=== PATIENT | female | born 1995 | race Two or more races ===

== ENCOUNTER 2016-07-31 12:25 | Emergency (ER) | payer BC ==
[~2016-07-31 12:25] MED LIST: ALBU17IN INH; ALBU17IN2 INH; ALBU83IN INH; BUDE180INH INH; CELE20TA PO; DELT1TAB PO; IBUP600T26 PO; IPRASOL4 NEB; MONT10TA2 PO; OCEA0.654; PRED50TA PO; implanon ID
[2016-07-31] MEDS ORDERED: ONDANSETRON 4MG/2ML VIAL (J2405) As Ordered ONE (13:13)
[2016-07-31 13:21] LABS: BASO % 0.3 % (0.0-1.0); EOS # 0.1 K/mm3 (0.0-0.50); EOS % 1.1 % (0.0-3.0); LARGE UNSTAINED CELL # 0.1 K/mm3 (0.0-0.4); LARGE UNSTAINED CELL % 0.5 % (0.0-4.0); LYMPH # 0.6 K/mm3 (1.5-6.5); LYMPH % 4.8 % (24.0-44.0); MEAN CORPUSCULAR HEMOGLOBIN 28.8 pg (27.0-33.0); MEAN CORPUSCULAR HGB CONC 33.8 g/dl (32.0-36.5); MEAN CORPUSCULAR VOLUME 85.4 fl (80.0-96.0); MONO # 0.4 K/mm3 (0.0-0.8); MONO % 3.2 % (0.0-5.0); NEUTROPHILS # 10.5 K/mm3 (1.8-7.7); NEUTROPHILS % 90.2 % (36.0-66.0); PLATELET COUNT, AUTOMATED 398 k/mm3 (150-450); RED CELL DISTRIBUTION WIDTH 14.4 % (11.5-14.5); WHITE BLOOD COUNT 11.6 K/mm3 (4.0-10.0)
[2016-07-31 13:37] LABS: ANION GAP 10 MEQ/L (8-16); BLOOD UREA NITROGEN 13 MG/DL (7-18); CALCIUM LEVEL 8.5 MG/DL (8.5-10.1); CARBON DIOXIDE LEVEL 23 MEQ/L (21-32); CHLORIDE LEVEL 104 MEQ/L (98-107); GLOMERULAR FILTRATION RATE > 60.0 (>60); GLUCOSE, FASTING 161 MG/DL (70-105); POTASSIUM SERUM 3.8 MEQ/L (3.5-5.1); SODIUM LEVEL 137 MEQ/L (136-145)
--- NOTE | 2016-07-31 15:31 | EDDOCDS ---
Physician Documentation [facility] Name: Cande Beck Age: 20 yrs Sex: Female : 1995 Arrival Date: 07/31/2016 Time: 12:25 Bed I4 / M4 Private MD: NO PRIMARY PHYSICIAN, . Disposition: 07/31/16 14:46 Discharged to Home/Self Care. Impression: Nausea and vomiting - likely viral gastroenteritis, Diarrhea, unspecified. - Condition is Stable. - Discharge Instructions: Clear Liquid Diet, Viral Gastroenteritis. - Prescriptions for ZOFRAN ODT 4 mg Oral - dissolve 1 tablet by ORAL route every 8 hours As needed do not chew, do not swallow whole; 10 tablet. - Medication Reconciliation, Work Release Form - 2 day, Local Pharmacy Hours form. - [facility]; When: Call to arrange an appointment; Reason: To establish care. Follow up: Emergency Department; When: As needed; Reason: Worsening of conditions. - Problem is new. - Symptoms have improved. Historical: - Allergies: No known drug Allergies; - Home Meds: 1. none - PMHx: Asthma; - PSHx: none; - Social history: Smoking status: Patient states was never smoker of tobacco. No barriers to communication noted, The patient speaks fluent Rwandan, Speaks appropriately for age. - Family history: Not pertinent. - : The pt / caregiver states he / she is not on anticoagulants. Home medication list is obtained from the patient. - Exposure Risk Screening:: None identified. 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 7 in. (170.18 cm) (R); Pain 8/10; 14:51 BP 116 / 64; Pulse 115; Resp 18; Temp 100.0(O); Pulse Ox 95% on R/A; Pain 0/10; nb2 12:27 Body Mass Index 36.02 (104.33 kg, 170.18 cm) gr2 MDM: 12:54 IV Saline Lock ordered. ar2 12:54 Ondansetron 4 mg IVP once ordered. ar2 12:54 NS 0.9% 1000 ml IV at bolus once ordered. ar2 12:55 MED Profile Ordered. EDMS 12:55 CBC with Diff Ordered. EDMS 12:55 -Influenza A&B Rapid Antigen - Nose Ordered. EDMS 13:36 CBC with Diff Reviewed. ar2 13:36 Fluid Challenge ordered. ar2 13:38 Financial registration complete. lg 13:52 [facility] Payment Agreement was scanned into [employer] and attached to record. lg 13:59 MED Profile Reviewed. ar2 13:59 -Influenza A&B Rapid Antigen - Nose Reviewed. ar2 Administered Medications: 13:17 Drug: Ondansetron 4 mg [ondansetron HCl 2 mg/mL intravenous solution (2 mL)] Route: ead IVP; Site: right antecubital; 13:17 Drug: NS 0.9% 1000 ml [sodium chloride 0.9 % intravenous solution] Route: IV; Rate: ead bolus; Site: right antecubital; Signatures: Dispatcher [employer] EDMS Rubén Watson, Reg Reg lg Jennifer ZepedaRN RN ck1 Deandre Ricketts PA-C PAHernesto ar2 Yari Sheppard RN RN ms18 Bre Thornton RN easadi The chart was reviewed and I authenticate all verbal orders and agree with the evaluation and treatment provided.Attachments: 13:52 [facility] Payment Agreement lg MTDD
--- NOTE | 2016-07-31 15:31 | EDDOCDS ---
Nurse's Notes [facility] Name: Cande Beck Age: 20 yrs Sex: Female : 1995 Arrival Date: 07/31/2016 Time: 12:25 Bed I4 / M4 Private MD: NO PRIMARY PHYSICIAN, . Diagnosis: Nausea and vomiting-likely viral gastroenteritis;Diarrhea, unspecified Presentation: 07/31 12:29 Presenting complaint: Patient states: Flu like symtoms since last night. Reports ck1 nausea, vomiting, diarrhea, generalized pain "everywhere". Adult Sepsis Screening: The patient does not have new or worsening altered mentation. Patient's respiratory rate is less than 22. Systolic blood pressure is greater than 100. Patient has a qSOFA score of 0- Negative Sepsis Screen. Suicide/Homicide risk assessment- the patient denies having any suicidal and/or homicidal ideations and does not present with any other emotional, behavioral or mental health complaints. Status: Patient is not a community service representative or dependent. Transition of care: patient was not received from another setting of care. 12:29 Method Of Arrival: Walkin/Carried/Asstd ck1 12:29 Acuity: MARLO Level 3 ck1 Triage Assessment: 12:31 General: Appears in no apparent distress, comfortable, Behavior is appropriate for age, ck1 cooperative. Pain: Location: generalized Pain currently is 9 out of 10 on a pain scale. HIV screening NA for this visit Offered previously. GI: Reports diarrhea, nausea, vomiting. Derm: Skin is pink, warm & dry. 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 none - PMHx: Asthma; - PSHx: none; - Social history: Smoking status: Patient states was never smoker of tobacco. No barriers to communication noted, The patient speaks fluent Nepali, Speaks appropriately for age. - Family history: Not pertinent. - : The pt / caregiver states he / she is not on anticoagulants. Home medication list is obtained from the patient. - Exposure Risk Screening:: None identified. Screenin:23 Screening information is obtained from the patient. Fall risk: No risks identified. ms18 Assistance ADL's: requires no assistance with activities of daily living. Abuse/DV Screen: The patient / caregiver reports he/she is: not in a situation that causes fear, pain or injury. Nutritional screening: No deficits noted. Advance Directives: There is no living will. home support is adequate. Assessment: 13:18 General: Appears in no apparent distress, comfortable, Behavior is appropriate for age, ead cooperative. Pain: Location: body aches Pain currently is 7 out of 10 on a pain scale. Neurological: Level of Consciousness is awake, alert, obeys commands, Oriented to person, place, time. GI: Abdomen is obese, Bowel sounds present X 4 quads. Abd is soft and non tender X 4 quads. Reports nausea, vomiting. Derm: Skin is pink, warm & dry. 14:30 General: Appears in no apparent distress, comfortable, to be sleeping. Respiratory: No ms18 deficits noted. Derm: Skin is pink, warm & dry. 15:23 General: Appears in no apparent distress, comfortable, obese, Behavior is appropriate ms18 for age, cooperative, pleasant. Pain: Location: abdomen Pain currently is 3 out of 10 on a pain scale. Neurological: Level of Consciousness is awake, alert, obeys commands, Oriented to person, place, time, Moves all extremities. Gait is steady, Speech is normal. Respiratory: No deficits noted. Airway is patent Respiratory effort is even, unlabored, Respiratory pattern is regular, symmetrical. Derm: Skin is pink, warm & dry. Vital Signs: 12:27 BP 113 / 73; Pulse 129; Resp 18 S; Temp 97.8(O); Pulse Ox 98% on R/A; Weight 104.33 kg gr2 (R); Height 5 ft. 7 in. (170.18 cm) (R); Pain 8/10; 14:51 BP 116 / 64; Pulse 115; Resp 18; Temp 100.0(O); Pulse Ox 95% on R/A; Pain 0/10; nb2 12:27 Body Mass Index 36.02 (104.33 kg, 170.18 cm) gr2 Vitals: 12:27 Log In Time: July 31, 2016 at 12:27. gr2 ED Course: 12:26 Patient visited by Rosalind Feng. gr2 12:26 NO PRIMARY PHYSICIAN, . is Private Physician. gr2 12:26 Patient moved to Waiting gr2 12:28 Patient visited by Jung, Gainslee. gr2 12:28 Patient moved to Pre RCE gr2 12:31 Triage Initiated ck1 12:32 Patient moved to Triage 2 ck1 12:42 [facility] Ricketts [facility]C [facility] ar2 12:42 Ester Joshi MD is Attending Physician. ar2 12:42 Patient visited by Deandre Ricketts PA-C. ar2 12:55 Patient moved to I4 / M4 ck1 13:10 Patient visited by Bre Thornton RN. ead 13:10 CBC with Diff Sent. ead 13:10 MED Profile Sent. ead 13:10 -Influenza A&B Rapid Antigen - Nose Sent. ead 13:10 Inserted peripheral IV: 20gauge IV in right antecubital area and blood collected. ead Patient tolerated the procedure well. 13:52 [facility] Payment Agreement was scanned into [employer] and attached to record. lg 14:03 Patient visited by Yari Sheppard RN. ms18 14:41 Patient visited by Yari Sheppard RN. ms18 14:45 [facility] is Referral Physician. ar2 14:52 Patient visited by Kiarra Mcgee. nb2 15:14 Patient visited by Kiarra Mcgee. nb2 15:23 Patient visited by Yari Sheppard RN. ms18 15:23 The patient / caregiver is instructed regarding the plan of care and ED course. Patient ms18 has correct armband on for positive identification. Placed in gown. Bed in low position. Call light in reach. Property :Personal belongings accompany Pt. 15:23 Discontinued IV lock intact, bleeding controlled, pressure dressing applied, No ms18 redness/swelling at site. No procedures done that require assistance. Administered Medications: 13:17 Drug: Ondansetron 4 mg [ondansetron HCl 2 mg/mL intravenous solution (2 mL)] Route: ead IVP; Site: right antecubital; 13:17 Drug: NS 0.9% 1000 ml [sodium chloride 0.9 % intravenous solution] Route: IV; Rate: ead bolus; Site: right antecubital; Order Results: Lab Order: -Influenza A&B Rapid Antigen - Nose; SPEC'M 07/31/16 13:08 Test: INFLUENZA A RAPID SCR by ICA; Value: INFLUENZA A RESULTS NEGATIVE; Status: F Test: INFLUENZA A RAPID SCR by ICA; Value: Comments:; Status: F Test: INFLUENZA B RAPID SCR by ICA; Value: INFLUENZA B RESULTS NEGATIVE; Status: F Test Note: ; The Influenza test is a direct rapid immunoassay for the qualitative detection of Influenza viral antigen. Cell culture (Viral Culture) testing should be considered to confirm NEGATIVE results and to assist in detecting other viruses that can provide similar clinical symptoms. Please contact the lab within 24 hours ([phone]) if confirmatory testing is desired. Lab Order: MED Profile; SPEC'M 07/31/16 13:07 Test: GLUCOSE, FASTING; Value: 161; Range: 70-105; Abnormal: Above high normal; Units: MG/DL; Status: F Test: BLOOD UREA NITROGEN; Value: 13; Range: 7-18; Units: MG/DL; Status: F Test: CREATININE FOR GFR; Value: 0.90; Range: 0.55-1.02; Units: MG/DL; Status: F Test: GLOMERULAR FILTRATION RATE; Value: > 60.0; Range: >60; Status: F Test: SODIUM LEVEL; Value: 137; Range: 136-145; Units: MEQ/L; Status: F Test: POTASSIUM SERUM; Value: 3.8; Range: 3.5-5.1; Units: MEQ/L; Status: F Test: CHLORIDE LEVEL; Value: 104; Range: 98-107; Units: MEQ/L; Status: F Test: CARBON DIOXIDE LEVEL; Value: 23; Range: 21-32; Units: MEQ/L; Status: F Test: ANION GAP; Value: 10; Range: 8-16; Units: MEQ/L; Status: F Test: CALCIUM LEVEL; Value: 8.5; Range: 8.5-10.1; Units: MG/DL; Status: F Test Note: ; Units are mL/min/1.73 m2 Chronic Kidney Disease Staging per NKF: Stage I & II GFR >=60 Normal to Mildly Decreased Stage III GFR 30-59 Moderately Decreased Stage IV GFR 15-29 Severely Decreased Stage V GFR <15 Very Little GFR Left ESRD GFR <15 on 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 Lab Order: CBC with Diff; SPEC'M 07/31/16 13:08 Test: WHITE BLOOD COUNT; Value: 11.6; Range: 4.0-10.0; Abnormal: Above high normal; Units: K/mm3; Status: F Test: RED BLOOD COUNT; Value: 5.11; Range: 4.00-5.40; Units: M/mm3; Status: F Test: HEMOGLOBIN; Value: 14.7; Range: 12.0-16.0; Units: g/dl; Status: F Test: HEMATOCRIT; Value: 43.7; Range: 36.0-47.0; Units: %; Status: F Test: MEAN CORPUSCULAR VOLUME; Value: 85.4; Range: 80.0-96.0; Units: fl; Status: F Test: MEAN CORPUSCULAR HEMOGLOBIN; Value: 28.8; Range: 27.0-33.0; Units: pg; Status: F Test: MEAN CORPUSCULAR HGB CONC; Value: 33.8; Range: 32.0-36.5; Units: g/dl; Status: F Test: RED CELL DISTRIBUTION WIDTH; Value: 14.4; Range: 11.5-14.5; Units: %; Status: F Test: PLATELET COUNT, AUTOMATED; Value: 398; Range: 150-450; Units: k/mm3; Status: F Test: NEUTROPHILS %; Value: 90.2; Range: 36.0-66.0; Abnormal: Above high normal; Units: %; Status: F Test: LYMPH %; Value: 4.8; Range: 24.0-44.0; Abnormal: Below low normal; Units: %; Status: F Test: MONO %; Value: 3.2; Range: 0.0-5.0; Units: %; Status: F Test: EOS %; Value: 1.1; Range: 0.0-3.0; Units: %; Status: F Test: BASO %; Value: 0.3; Range: 0.0-1.0; Units: %; Status: F Test: LARGE UNSTAINED CELL %; Value: 0.5; Range: 0.0-4.0; Units: %; Status: F Test: NEUTROPHILS #; Value: 10.5; Range: 1.8-7.7; Abnormal: Above high normal; Units: K/mm3; Status: F Test: LYMPH #; Value: 0.6; Range: 1.5-6.5; Abnormal: Below low normal; Units: K/mm3; Status: F Test: MONO #; Value: 0.4; Range: 0.0-0.8; Units: K/mm3; Status: F Test: EOS #; Value: 0.1; Range: 0.0-0.50; Units: K/mm3; Status: F Test: BASO #; Value: 0.0; Range: 0.0-0.2; Units: K/mm3; Status: F Test: LARGE UNSTAINED CELL #; Value: 0.1; Range: 0.0-0.4; Units: K/mm3; Status: F Outcome: 14:46 Discharge ordered by Provider. ar2 15:23 Discharge Assessment: Patient awake, alert and oriented x 3. No cognitive and/or ms18 functional deficits noted. Patient verbalized understanding of disposition instructions. patient administered narcotics - no. The following High Risk Discharge criteria are identified: None. Discharged to home ambulatory. Condition: good Condition: stable Condition: improved. No special radiology studies were completed. Property :Personal belongings accompany Pt. 15:30 Patient left the ED. ms18 Signatures: Rubén Watson, Reg Reg lg Jennifer ZepedaRN RN ck1 Deandre Ricketts PA-C PA-C ar2 Rosalind Feng gr2 Bre Thornton,Yari Mejia RN, RN RN ms18 Kiarra Mcgee2 MTDCarolyne
[2016-08-01] MEDS ORDERED: METAL LOCK LOOP XX ONE (02:19)
--- NOTE | 2016-08-02 16:31 | EDDOCDS ---
Nurse's Notes [facility] Name: Cande Beck Age: 20 yrs Sex: Female : 1995 Arrival Date: 07/31/2016 Time: 12:25 Bed I4 / M4 Private MD: NO PRIMARY PHYSICIAN, . Diagnosis: Nausea and vomiting-likely viral gastroenteritis;Diarrhea, unspecified Presentation: 07/31 12:29 Presenting complaint: Patient states: Flu like symtoms since last night. Reports ck1 nausea, vomiting, diarrhea, generalized pain "everywhere". Adult Sepsis Screening: The patient does not have new or worsening altered mentation. Patient's respiratory rate is less than 22. Systolic blood pressure is greater than 100. Patient has a qSOFA score of 0- Negative Sepsis Screen. Suicide/Homicide risk assessment- the patient denies having any suicidal and/or homicidal ideations and does not present with any other emotional, behavioral or mental health complaints. 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 Transition of care: patient was not received from another setting of care. 12:29 Method Of Arrival: Walkin/Carried/Asstd ck1 12:29 Acuity: MARLO Level 3 ck1 Triage Assessment: 12:31 General: Appears in no apparent distress, comfortable, Behavior is appropriate for age, ck1 cooperative. Pain: Location: generalized Pain currently is 9 out of 10 on a pain scale. HIV screening NA for this visit Offered previously. GI: Reports diarrhea, nausea, vomiting. Derm: Skin is pink, warm & dry. 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 none - PMHx: Asthma; - PSHx: none; - Social history: Smoking status: Patient states was never smoker of tobacco. No barriers to communication noted, The patient speaks fluent Lao, Speaks appropriately for age. - Family history: Not pertinent. - : The pt / caregiver states he / she is not on anticoagulants. Home medication list is obtained from the patient. - Exposure Risk Screening:: None identified. Screenin:23 Screening information is obtained from the patient. Fall risk: No risks identified. ms18 Assistance ADL's: requires no assistance with activities of daily living. Abuse/DV Screen: The patient / caregiver reports he/she is: not in a situation that causes fear, pain or injury. Nutritional screening: No deficits noted. Advance Directives: There is no living will. home support is adequate. Assessment: 13:18 General: Appears in no apparent distress, comfortable, Behavior is appropriate for age, ead cooperative. Pain: Location: body aches Pain currently is 7 out of 10 on a pain scale. Neurological: Level of Consciousness is awake, alert, obeys commands, Oriented to person, place, time. GI: Abdomen is obese, Bowel sounds present X 4 quads. Abd is soft and non tender X 4 quads. Reports nausea, vomiting. Derm: Skin is pink, warm & dry. 14:30 General: Appears in no apparent distress, comfortable, to be sleeping. Respiratory: No ms18 deficits noted. Derm: Skin is pink, warm & dry. 15:23 General: Appears in no apparent distress, comfortable, obese, Behavior is appropriate ms18 for age, cooperative, pleasant. Pain: Location: abdomen Pain currently is 3 out of 10 on a pain scale. Neurological: Level of Consciousness is awake, alert, obeys commands, Oriented to person, place, time, Moves all extremities. Gait is steady, Speech is normal. Respiratory: No deficits noted. Airway is patent Respiratory effort is even, unlabored, Respiratory pattern is regular, symmetrical. Derm: Skin is pink, warm & dry. Vital Signs: 12:27 BP 113 / 73; Pulse 129; Resp 18 S; Temp 97.8(O); Pulse Ox 98% on R/A; Weight 104.33 kg gr2 (R); Height 5 ft. 7 in. (170.18 cm) (R); Pain 8/10; 14:51 BP 116 / 64; Pulse 115; Resp 18; Temp 100.0(O); Pulse Ox 95% on R/A; Pain 0/10; nb2 12:27 Body Mass Index 36.02 (104.33 kg, 170.18 cm) gr2 Vitals: 12:27 Log In Time: July 31, 2016 at 12:27. gr2 ED Course: 12:26 Patient visited by Rosalind Feng. gr2 12:26 NO PRIMARY PHYSICIAN, . is Private Physician. gr2 12:26 Patient moved to Waiting gr2 12:28 Patient visited by Jung, Gainslee. gr2 12:28 Patient moved to Pre RCE gr2 12:31 Triage Initiated ck1 12:32 Patient moved to Triage 2 ck1 12:42 [facility]etts [facility] ar2 12:42 Ester Joshi MD is Attending Physician. ar2 12:42 Patient visited by Deandre Ricketts PA-C. ar2 12:55 Patient moved to I4 / M4 ck1 13:10 Patient visited by Bre Thornton RN. ead 13:10 CBC with Diff Sent. ead 13:10 MED Profile Sent. ead 13:10 -Influenza A&B Rapid Antigen - Nose Sent. ead 13:10 Inserted peripheral IV: 20gauge IV in right antecubital area and blood collected. ead Patient tolerated the procedure well. 13:52 [facility] Payment Agreement was scanned into [employer] and attached to record. lg 14:03 Patient visited by Yari Sheppard RN. ms18 14:41 Patient visited by Yari Sheppard RN. ms18 14:45 [facility] is Referral Physician. ar2 14:52 Patient visited by Kiarra Mcgee. nb2 15:14 Patient visited by Kiarra Mcgee. nb2 15:23 Patient visited by Yari Sheppard RN. ms18 15:23 The patient / caregiver is instructed regarding the plan of care and ED course. Patient ms18 has correct armband on for positive identification. Placed in gown. Bed in low position. Call light in reach. Property :Personal belongings accompany Pt. 15:23 Discontinued IV lock intact, bleeding controlled, pressure dressing applied, No ms18 redness/swelling at site. No procedures done that require assistance. 08/01 19:55 T-Sheet-- Draft Copy was scanned into [employer] and attached to record. klr Administered Medications: 07/31 13:17 Drug: Ondansetron 4 mg [ondansetron HCl 2 mg/mL intravenous solution (2 mL)] Route: ead IVP; Site: right antecubital; 13:17 Drug: NS 0.9% 1000 ml [sodium chloride 0.9 % intravenous solution] Route: IV; Rate: ead bolus; Site: right antecubital; Order Results: Lab Order: -Influenza A&B Rapid Antigen - Nose; SPEC'M 07/31/16 13:08 Test: INFLUENZA A RAPID SCR by ICA; Value: INFLUENZA A RESULTS NEGATIVE; Status: F Test: INFLUENZA A RAPID SCR by ICA; Value: Comments:; Status: F Test: INFLUENZA B RAPID SCR by ICA; Value: INFLUENZA B RESULTS NEGATIVE; Status: F Test Note: ; The Influenza test is a direct rapid immunoassay for the qualitative detection of Influenza viral antigen. Cell culture (Viral Culture) testing should be considered to confirm NEGATIVE results and to assist in detecting other viruses that can provide similar clinical symptoms. Please contact the lab within 24 hours ([phone]) if confirmatory testing is desired. Lab Order: MED Profile; SPEC'M 07/31/16 13:07 Test: GLUCOSE, FASTING; Value: 161; Range: 70-105; Abnormal: Above high normal; Units: MG/DL; Status: F Test: BLOOD UREA NITROGEN; Value: 13; Range: 7-18; Units: MG/DL; Status: F Test: CREATININE FOR GFR; Value: 0.90; Range: 0.55-1.02; Units: MG/DL; Status: F Test: GLOMERULAR FILTRATION RATE; Value: > 60.0; Range: >60; Status: F Test: SODIUM LEVEL; Value: 137; Range: 136-145; Units: MEQ/L; Status: F Test: POTASSIUM SERUM; Value: 3.8; Range: 3.5-5.1; Units: MEQ/L; Status: F Test: CHLORIDE LEVEL; Value: 104; Range: 98-107; Units: MEQ/L; Status: F Test: CARBON DIOXIDE LEVEL; Value: 23; Range: 21-32; Units: MEQ/L; Status: F Test: ANION GAP; Value: 10; Range: 8-16; Units: MEQ/L; Status: F Test: CALCIUM LEVEL; Value: 8.5; Range: 8.5-10.1; Units: MG/DL; Status: F Test Note: ; Units are mL/min/1.73 m2 Chronic Kidney Disease Staging per NKF: Stage I & II GFR >=60 Normal to Mildly Decreased Stage III GFR 30-59 Moderately Decreased Stage IV GFR 15-29 Severely Decreased Stage V GFR <15 Very Little GFR Left ESRD GFR <15 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 Lab Order: CBC with Diff; SPEC'M 07/31/16 13:08 Test: WHITE BLOOD COUNT; Value: 11.6; Range: 4.0-10.0; Abnormal: Above high normal; Units: K/mm3; Status: F Test: RED BLOOD COUNT; Value: 5.11; Range: 4.00-5.40; Units: M/mm3; Status: F Test: HEMOGLOBIN; Value: 14.7; Range: 12.0-16.0; Units: g/dl; Status: F Test: HEMATOCRIT; Value: 43.7; Range: 36.0-47.0; Units: %; Status: F Test: MEAN CORPUSCULAR VOLUME; Value: 85.4; Range: 80.0-96.0; Units: fl; Status: F Test: MEAN CORPUSCULAR HEMOGLOBIN; Value: 28.8; Range: 27.0-33.0; Units: pg; Status: F Test: MEAN CORPUSCULAR HGB CONC; Value: 33.8; Range: 32.0-36.5; Units: g/dl; Status: F Test: RED CELL DISTRIBUTION WIDTH; Value: 14.4; Range: 11.5-14.5; Units: %; Status: F Test: PLATELET COUNT, AUTOMATED; Value: 398; Range: 150-450; Units: k/mm3; Status: F Test: NEUTROPHILS %; Value: 90.2; Range: 36.0-66.0; Abnormal: Above high normal; Units: %; Status: F Test: LYMPH %; Value: 4.8; Range: 24.0-44.0; Abnormal: Below low normal; Units: %; Status: F Test: MONO %; Value: 3.2; Range: 0.0-5.0; Units: %; Status: F Test: EOS %; Value: 1.1; Range: 0.0-3.0; Units: %; Status: F Test: BASO %; Value: 0.3; Range: 0.0-1.0; Units: %; Status: F Test: LARGE UNSTAINED CELL %; Value: 0.5; Range: 0.0-4.0; Units: %; Status: F Test: NEUTROPHILS #; Value: 10.5; Range: 1.8-7.7; Abnormal: Above high normal; Units: K/mm3; Status: F Test: LYMPH #; Value: 0.6; Range: 1.5-6.5; Abnormal: Below low normal; Units: K/mm3; Status: F Test: MONO #; Value: 0.4; Range: 0.0-0.8; Units: K/mm3; Status: F Test: EOS #; Value: 0.1; Range: 0.0-0.50; Units: K/mm3; Status: F Test: BASO #; Value: 0.0; Range: 0.0-0.2; Units: K/mm3; Status: F Test: LARGE UNSTAINED CELL #; Value: 0.1; Range: 0.0-0.4; Units: K/mm3; Status: F Outcome: 14:46 Discharge ordered by Provider. ar2 15:23 Discharge Assessment: Patient awake, alert and oriented x 3. No cognitive and/or ms18 functional deficits noted. Patient verbalized understanding of disposition instructions. patient administered narcotics - no. The following High Risk Discharge criteria are identified: None. Discharged to home ambulatory. Condition: good Condition: stable Condition: improved. No special radiology studies were completed. Property :Personal belongings accompany Pt. 15:30 Patient left the ED. ms18 Signatures: Rubén Watson, Reg Reg lg Jennifer ZepedaRN RN ck1 Deandre Ricketts PA-C PA-C ar2 Rosalind Feng gr2 Bre Thornton RN RN ead Smith, Mallory, RN RN ms18 Reena Hairston Nicole nb2 Chart Complete MTDD
--- NOTE | 2016-08-02 16:31 | EDDOCDS ---
Physician Documentation [facility] Name: Cande Beck Age: 20 yrs Sex: Female : 1995 Arrival Date: 07/31/2016 Time: 12:25 Bed I4 / M4 Private MD: NO PRIMARY PHYSICIAN, . Disposition: 07/31/16 14:46 Discharged to Home/Self Care. Impression: Nausea and vomiting - likely viral gastroenteritis, Diarrhea, unspecified. - Condition is Stable. - Discharge Instructions: Clear Liquid Diet, Viral Gastroenteritis. - Prescriptions for ZOFRAN ODT 4 mg Oral - dissolve 1 tablet by ORAL route every 8 hours As needed do not chew, do not swallow whole; 10 tablet. - Medication Reconciliation, Work Release Form - 2 day, Local Pharmacy Hours form. - [facility]; When: Call to arrange an appointment; Reason: To establish care. Follow up: Emergency Department; When: As needed; Reason: Worsening of conditions. - Problem is new. - Symptoms have improved. Historical: - Allergies: No known drug Allergies; - Home Meds: 1. none - PMHx: Asthma; - PSHx: none; - Social history: Smoking status: Patient states was never smoker of tobacco. No barriers to communication noted, The patient speaks fluent [place], Speaks appropriately for age. - Family history: Not pertinent. - : The pt / caregiver states he / she is not on anticoagulants. Home medication list is obtained from the patient. - Exposure Risk Screening:: None identified. 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 7 in. (170.18 cm) (R); Pain 8/10; 14:51 BP 116 / 64; Pulse 115; Resp 18; Temp 100.0(O); Pulse Ox 95% on R/A; Pain 0/10; nb2 12:27 Body Mass Index 36.02 (104.33 kg, 170.18 cm) gr2 MDM: 12:54 IV Saline Lock ordered. ar2 12:54 Ondansetron 4 mg IVP once ordered. ar2 12:54 NS 0.9% 1000 ml IV at bolus once ordered. ar2 12:55 MED Profile Ordered. EDMS 12:55 CBC with Diff Ordered. EDMS 12:55 -Influenza A&B Rapid Antigen - Nose Ordered. EDMS 13:36 CBC with Diff Reviewed. ar2 13:36 Fluid Challenge ordered. ar2 13:38 Financial registration complete. lg 13:52 [facility] Payment Agreement was scanned into [employer] and attached to record. lg 13:59 MED Profile Reviewed. ar2 13:59 -Influenza A&B Rapid Antigen - Nose Reviewed. ar2 08/01 19:55 T-Sheet-- Draft Copy was scanned into [employer] and attached to record. klr Administered Medications: 07/31 13:17 Drug: Ondansetron 4 mg [ondansetron HCl 2 mg/mL intravenous solution (2 mL)] Route: ead IVP; Site: right antecubital; 13:17 Drug: NS 0.9% 1000 ml [sodium chloride 0.9 % intravenous solution] Route: IV; Rate: ead bolus; Site: right antecubital; Signatures: Dispatcher [employer] EDMS Rubén Watson, Reg Reg lg Jennifer Zepeda RN RN ck1 Deandre Ricketts PA-C PAKaciC ar2 Yari Sheppard RN RN [id number] Reena Hairston Emily RN ead The chart was reviewed and I authenticate all verbal orders and agree with the evaluation and treatment provided.Attachments: 13:52 [facility] Payment Agreement 08/01 19:55 T-Sheet-- Draft Copy klr Chart Complete MTDD
--- NOTE | 2016-08-02 16:31 | EDDOCDS ---
Physician Documentation [facility] Name: Cande Beck Age: 20 yrs Sex: Female : 1995 Arrival Date: 07/31/2016 Time: 12:25 Bed I4 / M4 Private MD: NO PRIMARY PHYSICIAN, . Disposition: 07/31/16 14:46 Discharged to Home/Self Care. Impression: Nausea and vomiting - likely viral gastroenteritis, Diarrhea, unspecified. - Condition is Stable. - Discharge Instructions: Clear Liquid Diet, Viral Gastroenteritis. - Prescriptions for ZOFRAN ODT 4 mg Oral - dissolve 1 tablet by ORAL route every 8 hours As needed do not chew, do not swallow whole; 10 tablet. - Medication Reconciliation, Work Release Form - 2 day, Local Pharmacy Hours form. - Follow up: [facility]; When: Call to arrange an appointment; Reason: To establish care. Follow up: Emergency Department; When: As needed; Reason: Worsening of conditions. - Problem is new. - Symptoms have improved. Historical: - Allergies: No known drug Allergies; - Home Meds: 1. none - PMHx: Asthma; - PSHx: none; - Social history: Smoking status: Patient states was never smoker of tobacco. No barriers to communication noted, The patient speaks fluent Dominican, Speaks appropriately for age. - Family history: Not pertinent. - : The pt / caregiver states he / she is not on anticoagulants. Home medication list is obtained from the patient. - Exposure Risk Screening:: None identified. 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 7 in. (170.18 cm) (R); Pain 8/10; 14:51 BP 116 / 64; Pulse 115; Resp 18; Temp 100.0(O); Pulse Ox 95% on R/A; Pain 0/10; nb2 12:27 Body Mass Index 36.02 (104.33 kg, 170.18 cm) gr2 MDM: 12:54 IV Saline Lock ordered. ar2 12:54 Ondansetron 4 mg IVP once ordered. ar2 12:54 NS 0.9% 1000 ml IV at bolus once ordered. ar2 12:55 MED Profile Ordered. EDMS 12:55 CBC with Diff Ordered. EDMS 12:55 -Influenza A&B Rapid Antigen - Nose Ordered. EDMS 13:36 CBC with Diff Reviewed. ar2 13:36 Fluid Challenge ordered. ar2 13:38 Financial registration complete. lg 13:52 [facility] Payment Agreement was scanned into [employer] and attached to record. lg 13:59 MED Profile Reviewed. ar2 13:59 -Influenza A&B Rapid Antigen - Nose Reviewed. ar2 08/01 19:55 T-Sheet-- Draft Copy was scanned into [employer] and attached to record. klr Administered Medications: 07/31 13:17 Drug: Ondansetron 4 mg [ondansetron HCl 2 mg/mL intravenous solution (2 mL)] Route: ead IVP; Site: right antecubital; 13:17 Drug: NS 0.9% 1000 ml [sodium chloride 0.9 % intravenous solution] Route: IV; Rate: ead bolus; Site: right antecubital; Signatures: Dispatcher [employer] EDMS Rubén Watson, Reg Reg lg Jennifer Zepeda RN RN ck1 Deandre Ricketts PA-C PAKaciC ar2 Yari Sheppard RN RN [id number] Reena Hairston Emily RN ead The chart was reviewed and I authenticate all verbal orders and agree with the evaluation and treatment provided.Attachments: 13:52 [facility] Payment Agreement 08/01 19:55 T-Sheet-- Draft Copy klr Chart Complete MTDD
== END 2016-07-31 15:30 | disposition home or self-care (01) ==
LOC: M ED 12:25
DX: A08.4 Viral intestinal infection, unspecified (principal); J45.909 Unspecified asthma, uncomplicated
CPT/HCPCS: 36415; 80048; 85025; 87804; 96374; 99284; J2405

== ENCOUNTER 2016-09-20 09:23 | Emergency (ER) | payer BC ==
[~2016-09-20] VITALS: Ht 170.2 cm; Wt 108.9 kg
[2016-09-20 09:24] VITALS: BP 119/78
[2016-09-20] MEDS ORDERED: IBUP600T26 PO (09:54)
[2016-09-20] MEDS ORDERED: AMOX500C PO (10:15)
== END 2016-09-20 10:47 | disposition home or self-care (01) ==
LOC: M ED 10:31
DX: J03.91 Acute recurrent tonsillitis, unspecified (principal); F17.210 Nicotine dependence, cigarettes, uncomplicated

== ENCOUNTER → 2017-01-20 | Outpatient (CLI) | payer BC ==
[~2017-01-20] MED LIST changes: +ABIL1TAB13 PO; +AMOX500C PO; +FLAG500T PO; +IBUP-1022 PO; -IBUP600T26 PO; +LEVO50TA5 PO; +NAPR500T PO
[2017-01-20 09:58] LABS: BASO # 0.1 K/mm3 (0.0-0.2); BASO % 0.9 % (0.0-1.0); EOS # 0.7 K/mm3 (0.0-0.50); EOS % 7.2 % (0.0-3.0); LARGE UNSTAINED CELL # 0.2 K/mm3 (0.0-0.4); LARGE UNSTAINED CELL % 1.5 % (0.0-4.0); LYMPH # 2.8 K/mm3 (1.5-6.5); LYMPH % 27.1 % (24.0-44.0); MEAN CORPUSCULAR HGB CONC 32.6 g/dl (32.0-36.5); MEAN CORPUSCULAR VOLUME 82.7 fl (80.0-96.0); MONO # 0.4 K/mm3 (0.0-0.8); MONO % 3.9 % (0.0-5.0); NEUTROPHILS # 5.8 K/mm3 (1.8-7.7); NEUTROPHILS % 59.4 % (36.0-66.0); PLATELET COUNT, AUTOMATED 408 k/mm3 (150-450); RED CELL DISTRIBUTION WIDTH 15.7 % (11.5-14.5); WHITE BLOOD COUNT 9.7 K/mm3 (4.0-10.0)
[2017-01-20 10:29] LABS: ALBUMIN/GLOBULIN RATIO 1.11 (1.00-1.93); ALKALINE PHOSPHATASE 88 U/L (45-117); ALT/SGPT 29 U/L (12-78); ANION GAP 9 MEQ/L (8-16); AST/SGOT 19 U/L (15-37); BILIRUBIN,TOTAL 1.2 MG/DL (0.2-1.0); BLOOD UREA NITROGEN 7 MG/DL (7-18); CALCIUM LEVEL 8.9 MG/DL (8.5-10.1); CARBON DIOXIDE LEVEL 27 MEQ/L (21-32); CHLORIDE LEVEL 106 MEQ/L (98-107); CHOLESTEROL LEVEL 198 MG/DL (<200); CREATININE FOR GFR 0.62 MG/DL (0.55-1.02); FREE T4 0.89 NG/DL (0.76-1.46); GLOMERULAR FILTRATION RATE > 60.0 (>60); GLUCOSE, FASTING 75 MG/DL (70-105); POTASSIUM SERUM 4.2 MEQ/L (3.5-5.1); SODIUM LEVEL 142 MEQ/L (136-145); TOTAL PROTEIN 7.6 GM/DL (6.4-8.2); TRIGLYCERIDES LEVEL 90 MG/DL (<150)
== END ==
LOC: M LAB 08:43
PROVIDERS: ATTEND Nurse Practitioner Family
DX: Z00.00 Encounter for general adult medical examination without abnormal findings (principal); E66.9 Obesity, unspecified; E01.0 Iodine-deficiency related diffuse (endemic) goiter; R94.6 Abnormal results of thyroid function studies

== ENCOUNTER 2017-02-04 09:11 | Day surgery (SDC) | payer BC ==
[~2017-02-04] VITALS: Ht 172.7 cm; Wt 107.5 kg
[~2017-02-04 09:11] MED LIST changes: -ABIL1TAB13 PO; -FLAG500T PO; +LR 1,000 ML IV ONE; -NAPR500T PO
[2017-02-04 11:08] LABS: CONTROL LINE UCG INT CTR LINE PRESENT
[2017-02-04] MEDS ORDERED: BUPIVACAINE HCL 0.5% 30 ML VIAL As Ordered ONE (12:28)
[2017-02-04] MEDS ORDERED: dexameTHASONE 4 MG/ML 1ML VIAL (J1100) As Ordered ONE (12:32)
[2017-02-04] MEDS ORDERED: LIDOCAINE 2% INJ 100 MG/5 ML SDV (FOR ANES.) As Ordered ONE (12:32)
[2017-02-04] MEDS ORDERED: PROPOFOL 200 MG/20 ML VIAL As Ordered ONE ×3 (12:32→15:11)
[2017-02-04] MEDS ORDERED: ROCURONIUM BROMIDE 50 MG/5 ML VIAL/SYRINGE As Ordered ONE (12:32)
[2017-02-04] MEDS ORDERED: MIDAZOLAM INJ 2 MG/2 ML VIAL (J2250) As Ordered ONE (12:33)
[2017-02-04] MEDS ORDERED: fentaNYL 100 MCG/2 ML INJECTION (J3010) As Ordered ONE (12:33)
[2017-02-04] MEDS ORDERED: HYDROmorphone HCL 2 MG/ML 1ML VIAL (J1170) As Ordered ONE (13:12)
[2017-02-04] MEDS ORDERED: HYDROcodone/APAP LIQUID 7.5-325MG 15ML UDC (LORTAB ELIXIR) PO PRN (14:15)
[2017-02-04] MEDS ORDERED: fentaNYL 100 MCG/2 ML INJECTION (J3010) IV PRN (14:15)
[2017-02-04] MEDS ORDERED: LR 1,000 ML IV SCH (14:15)
[2017-02-04] MEDS ORDERED: PERCOCET 5MG/325MG TAB PO PRN ×2 (14:15)
[2017-02-04] MEDS ORDERED: ONDANSETRON 4MG/2ML VIAL (J2405) IV PRN (14:15)
[2017-02-04] MEDS ORDERED: IBUPROFEN 800 MG TAB PO PRN (14:15)
[2017-02-04] MEDS ORDERED: IBUPROFEN 100 MG/5 ML SUSP UDC DYE FREE As Ordered ONE (14:50)
[2017-02-04 16:45] VITALS: BP 131/83
--- NOTE | 2017-02-18 19:15 | RO ---
DATE OF PROCEDURE: 02/04/2017 PREOPERATIVE DIAGNOSIS: Chronic tonsillitis. POSTOPERATIVE DIAGNOSIS: Chronic tonsillitis. PROCEDURE: Tonsillectomy. SURGEON: Nik Beltre MD WORKERS' COMPENSATION MEDIATOR: ANESTHESIA: INDICATION: This is a 21-year-old who presents with a long history of recurrent pharyngitis and tonsillitis. DESCRIPTION OF PROCEDURE: Satisfactory general endotracheal anesthesia was administered. The patient placed in Trendelenburg position. A Paul-Oneal gag inserted. First, the right tonsil was grasped with an Allis clamp and retracted out of its muscular fossa. Using cutting cautery, incision was made on the anterior pillar 3 mm from its edge and the capsule of the tonsil was then identified. Using a combination of cautery and blunt dissection, the tonsil was dissected medially out of its muscular fossa, working superiorly down into the space between the constrictor muscle and the tonsil capsule. The tonsil was rolled medially out of its fossa, working inferiorly and preserving the posterior pillar in its entirety. Once the tonsil was suspended only at the inferior pole, coagulation current was used to amputate tissue. No significant bleeding was encountered in this dissection. The left tonsil was removed in a similar fashion. After the surgery was done, the gag was released for 3 minutes. Reinspection showed no active bleeding. 0.5% Marcaine was injected into the tonsil fossae. She was then awakened, extubated, and sent to recovery in satisfactory condition. The patient will be discharged home with selection of pain medicines including Percocet, Hycet elixir and Motrin to be alternated. She will be seen back in the office in one week.
== END 2017-02-04 12:28 | disposition home or self-care (01) ==
LOC: M SDC 09:11
PROVIDERS: ATTEND Specialist
DX: J35.01 Chronic tonsillitis (principal); J45.909 Unspecified asthma, uncomplicated; E03.9 Hypothyroidism, unspecified
CPT/HCPCS: 42826; 84703; 88302; J1100; J1170; J2250; J3010

== ENCOUNTER 2017-03-06 23:07 | Emergency (ER) | payer BC ==
[~2017-03-06] VITALS: Ht 172.7 cm; Wt 104.5 kg
[~2017-03-06 23:07] MED LIST changes: -LR 1,000 ML IV ONE
[2017-03-06] MEDS ORDERED: FLAG500T PO (23:17)
[2017-03-07] MEDS ORDERED: NAPROXEN 250 MG TAB PO ONE (01:00)
[2017-03-07] MEDS ORDERED: ONDANSETRON 4 MG ORAL DISINTEGRATING TAB (S0181) PO ONE (01:00)
[2017-03-07] MEDS ORDERED: NAPR500T PO (01:57)
[2017-03-07 02:04] VITALS: BP 122/68
== END 2017-03-07 02:06 | disposition home or self-care (01) ==
LOC: M ED 23:07
DX: R53.83 Other fatigue (principal); J45.909 Unspecified asthma, uncomplicated; G89.29 Other chronic pain; R51 Headache; Z79.899 Other long term (current) drug therapy

== ENCOUNTER 2017-03-30 00:20 | Emergency (ER) | payer BC ==
[~2017-03-30] VITALS: Ht 172.7 cm; Wt 104.5 kg
[~2017-03-30 00:20] MED LIST changes: +FLAG500T PO; +NAPR500T PO
[2017-03-30 00:35] VITALS: BP 124/74
[2017-03-30] MEDS ORDERED: ABIL1TAB13 PO (00:41)
== END 2017-03-30 01:25 | disposition left against medical advice (07) ==
LOC: M ED 00:20
DX: Z53.21 Procedure and treatment not carried out due to patient leaving prior to being seen by health care provider (principal)

== ENCOUNTER 2017-08-29 18:46 | Emergency (ER) | payer BC ==
[2017-08-29] MEDS: IPRATROPIUM 0.5MG/ALBUTEROL 2.5MG INH SOL UD 3ML (DUONEB)(J7620) NEB (19:00)
[2017-08-29] MEDS: methylPREDNISolone INJ 125 MG/2 ML VIAL (J2930) IM (20:44)
[2017-08-29] MEDS: predniSONE 20 MG TAB PO (21:00)
[2017-08-29] MEDS: AUGMENTIN 875 MG TAB PO (21:00)
== END 2017-08-29 21:10 | disposition home or self-care (01) ==
LOC: M ED 18:46
DX: J01.80 Other acute sinusitis (principal); J20.9 Acute bronchitis, unspecified; J45.909 Unspecified asthma, uncomplicated; Z79.3 Long term (current) use of hormonal contraceptives
CPT/HCPCS: J2930

== ENCOUNTER 2017-12-09 01:45 | Emergency (ER) | payer SELFPAY, BC ==
[2017-12-09] MEDS ORDERED: IPRATROPIUM 0.5MG/ALBUTEROL 2.5MG INH SOL UD 3ML (DUONEB)(J7620) As Ordered (02:27)
[2017-12-09] MEDS: IPRATROPIUM 0.5MG/ALBUTEROL 2.5MG INH SOL UD 3ML (DUONEB)(J7620) NEB (02:31)
[2017-12-09] MEDS: dexameTHASONE 20 MG/5 ML VIAL (J1100) IV (03:00)
[2017-12-09] MEDS: MONTELUKAST 10 MG TAB PO (03:30)
[2017-12-09] MEDS: ALBUTEROL SULFATE 2.5 MG/0.5 ML INH NEB SOLN NEB (03:53)
== END 2017-12-09 04:24 | disposition home or self-care (01) ==
LOC: M ED 01:45
DX: J45.909 Unspecified asthma, uncomplicated (principal); R00.0 Tachycardia, unspecified
CPT/HCPCS: J1100

== ENCOUNTER → 2018-01-26 | Outpatient (REF) | payer SELFPAY ==
[2018-01-26 19:38] LABS: BASO # 0.1 10^3/uL (0.0-0.2); BASO % 0.8 % (0.0-1.0); EOS # 0.5 10^3/uL (0.0-0.50); EOS % 6.8 % (0.0-3.0); HEMATOCRIT 41.2 % (36.0-47.0); HEMOGLOBIN 14.2 g/dl (12.0-15.5); IMMATURE GRANULOCYTE % 0.3 % (0-3.0); LYMPH # 2.3 10^3/uL (1.5-6.5); LYMPH % 31.2 % (24.0-44.0); MEAN CORPUSCULAR HGB CONC 34.5 g/dl (32.0-36.5); MEAN CORPUSCULAR VOLUME 87.1 fl (80.0-96.0); MONO # 0.5 10^3/uL (0.0-0.8); MONO % 6.2 % (0.0-5.0); NEUTROPHILS # 4.1 10^3/uL (1.8-7.7); NEUTROPHILS % 54.7 % (36.0-66.0); PLATELET COUNT, AUTOMATED 393 10^3/uL (150-450); RED BLOOD COUNT 4.73 10^6/uL (4.00-5.40); RED CELL DISTRIBUTION WIDTH 13.1 % (11.5-14.5); WHITE BLOOD COUNT 7.5 10^3/uL (4.0-10.0)
[2018-01-26 19:45] LABS: ALBUMIN 3.5 GM/DL (3.2-5.2); ALBUMIN/GLOBULIN RATIO 0.88 (1.00-1.93); ALKALINE PHOSPHATASE 87 U/L (45-117); ALT/SGPT 24 U/L (12-78); ANION GAP 6 MEQ/L (8-16); AST/SGOT 16 U/L (7-37); BLOOD UREA NITROGEN 10 MG/DL (7-18); CALCIUM LEVEL 8.7 MG/DL (8.5-10.1); CARBON DIOXIDE LEVEL 25 MEQ/L (21-32); CHLORIDE LEVEL 110 MEQ/L (98-107); CREATININE FOR GFR 0.64 MG/DL (0.55-1.30); GLOMERULAR FILTRATION RATE > 60.0 (>60); GLUCOSE, FASTING 94 MG/DL (70-100); IRON (FE) 119 UG/DL (50-170); POTASSIUM SERUM 4.5 MEQ/L (3.5-5.1); SODIUM LEVEL 141 MEQ/L (136-145); TOTAL PROTEIN 7.5 GM/DL (6.4-8.2)
[2018-01-26 20:05] LABS: ESTIMATED AVERAGE GLUCOSE 94 MG/DL (60-110); HEMOGLOBIN A1c 4.9 %
== END ==
LOC: M LAB REF 18:57
DX: D64.9 Anemia, unspecified (principal); E04.9 Nontoxic goiter, unspecified; E66.09 Other obesity due to excess calories
CPT/HCPCS: 83540

== ENCOUNTER 2018-02-09 04:55 | Emergency (ER) | payer BC, SELFPAY ==
[2018-02-09] MEDS: diazePAM 10 MG TAB PO (06:45)
[2018-02-09] MEDS: KETOROLAC 60 MG/2 ML VIAL (J1885) IM (06:45)
[2018-02-09] MEDS ORDERED: methylPREDNISolone INJ 125 MG/2 ML VIAL (J2930) IV (07:30)
[2018-02-09] MEDS: predniSONE 20 MG TAB PO (07:32)
== END 2018-02-09 08:07 | disposition home or self-care (01) ==
LOC: M ED 04:55
DX: S39.012A Strain of muscle, fascia and tendon of lower back, initial encounter (principal); M62.830 Muscle spasm of back; X50.1XXA Overexertion from prolonged static or awkward postures, initial encounter; Y92.89 Other specified places as the place of occurrence of the external cause; M54.9 Dorsalgia, unspecified; G89.29 Other chronic pain; J45.909 Unspecified asthma, uncomplicated; E03.9 Hypothyroidism, unspecified; R51 Headache; F17.200 Nicotine dependence, unspecified, uncomplicated; Z79.899 Other long term (current) drug therapy; Z79.1 Long term (current) use of non-steroidal anti-inflammatories (NSAID); Z79.3 Long term (current) use of hormonal contraceptives
CPT/HCPCS: J1885

== ENCOUNTER 2018-03-16 04:24 | Emergency (ER) | payer BC ==
[2018-03-16] MEDS: IPRATROPIUM 0.5MG/ALBUTEROL 2.5MG INH SOL UD 3ML (DUONEB)(J7620) NEB (04:39)
[2018-03-16] MEDS: dexameTHASONE 20 MG/5 ML VIAL (J1100) IV (04:45)
[2018-03-16] MEDS: ALBUTEROL SULFATE 2.5 MG/0.5 ML INH NEB SOLN NEB (05:00)
== END 2018-03-16 06:44 | disposition home or self-care (01) ==
LOC: M ED 04:24
DX: J45.901 Unspecified asthma with (acute) exacerbation (principal); F41.9 Anxiety disorder, unspecified; F32.9 Major depressive disorder, single episode, unspecified; Z79.1 Long term (current) use of non-steroidal anti-inflammatories (NSAID); Z79.899 Other long term (current) drug therapy
CPT/HCPCS: J1100

== ENCOUNTER 2018-04-08 13:13 | Emergency (ER) | payer BC ==
[2018-04-08] MEDS: methylPREDNISolone INJ 125 MG/2 ML VIAL (J2930) IV (13:49)
[2018-04-08] MEDS: IPRATROPIUM 0.5MG/ALBUTEROL 2.5MG INH SOL UD 3ML (DUONEB)(J7620) NEB ×2 (13:58→14:13)
== END 2018-04-08 14:58 | disposition home or self-care (01) ==
LOC: M ED 13:13
DX: J45.901 Unspecified asthma with (acute) exacerbation (principal); E03.9 Hypothyroidism, unspecified; Z87.01 Personal history of pneumonia (recurrent); F33.9 Major depressive disorder, recurrent, unspecified; F90.9 Attention-deficit hyperactivity disorder, unspecified type
CPT/HCPCS: J2930

== ENCOUNTER 2018-08-01 13:03 | Emergency (ER) | payer BC, OTHER ==
[~2018-08-01] VITALS: Ht 170.2 cm; Wt 109.1 kg
[~2018-08-01 13:03] MED LIST changes: +ABIL10TA9 PO; +ABIL1TAB13 PO; +AUGM875T28 PO; +COMP1MIS3 XX; +EFFE37.5 PO; +IPRA0.00 NEB; -IPRASOL4 NEB; +NAPR-50 PO; +NAPR-885 PO; -NAPR500T PO; +NEXP1IMP SC; +PRED20TA PO; +PROAAER10 INH; +ROBA500T PO; +SING10TA32 PO; +VENTAER INH; +ZITHTAB PO
[2018-08-01] MEDS: IPRATROPIUM 0.5MG/ALBUTEROL 2.5MG INH SOL UD 3ML (DUONEB)(J7620) NEB PRN ×3 (14:30→14:50)
--- NOTE | 2018-08-01 14:49 | REP ---
PA and lateral chest: Comparison is 04/08/2018. The lung jett are clear. The cardiac size is normal. The braina, mediastinum, and skeletal structures are unremarkable. Impression: Negative PA and lateral chest. There is no interval change. Electronically Signed by Ramos Heck MD 08/01/2018 02:41 P
[2018-08-01 15:21] VITALS: BP 141/80
[2018-08-01] MEDS ORDERED: PROAAER10 INH (15:31)
[2018-08-01] MEDS ORDERED: PRED20TA PO (15:31)
== END 2018-08-01 15:48 | disposition home or self-care (01) ==
LOC: M ED 13:03
DX: J45.901 Unspecified asthma with (acute) exacerbation (principal); G43.909 Migraine, unspecified, not intractable, without status migrainosus; F90.9 Attention-deficit hyperactivity disorder, unspecified type; E03.9 Hypothyroidism, unspecified; E05.90 Thyrotoxicosis, unspecified without thyrotoxic crisis or storm; F32.9 Major depressive disorder, single episode, unspecified; Z79.3 Long term (current) use of hormonal contraceptives

== ENCOUNTER 2018-09-14 10:58 | Emergency (ER) | payer OTHER ==
[~2018-09-14] VITALS: Ht 170.2 cm; Wt 110.0 kg
[~2018-09-14 10:58] MED LIST changes: -NAPR-50 PO; +NAPR-837 PO
[2018-09-14] MEDS ORDERED: ALBUTEROL SULFATE 2.5 MG/0.5 ML INH NEB SOLN INH ONE (12:30)
[2018-09-14] MEDS ORDERED: IPRATROPIUM 0.5MG/ALBUTEROL 2.5MG INH SOL UD 3ML (DUONEB)(J7620) NEB ONE (12:30)
[2018-09-14] MEDS ORDERED: predniSONE 20 MG TAB PO ONE (12:30)
[2018-09-14] MEDS ORDERED: PRED20TA PO (13:56)
[2018-09-14] MEDS ORDERED: MUCI600T37 PO (13:58)
--- NOTE | 2018-09-14 13:58 | REP ---
PA and lateral chest: Comparison is 08/01/2018. The lung jett are clear. The cardiac size is normal. The briana, mediastinum, and skeletal structures are unremarkable. Impression: Negative PA and lateral chest. There is no interval change. Electronically Signed by Ramos Heck MD 09/14/2018 01:50 P
[2018-09-14 14:05] VITALS: BP 131/86
== END 2018-09-14 14:09 | disposition home or self-care (01) ==
LOC: M ED 10:58
DX: J45.901 Unspecified asthma with (acute) exacerbation (principal); Z77.098 Contact with and (suspected) exposure to other hazardous, chiefly nonmedicinal, chemicals

== ENCOUNTER 2018-09-26 13:40 | Emergency (ER) | payer OTHER ==
[~2018-09-26] VITALS: Ht 170.2 cm; Wt 109.1 kg
[~2018-09-26 13:40] MED LIST changes: +MUCI600T37 PO
[2018-09-26] MEDS ORDERED: methylPREDNISolone INJ 125 MG/2 ML VIAL (J2930) IM ONE (14:00)
[2018-09-26] MEDS: IPRATROPIUM 0.5MG/ALBUTEROL 2.5MG INH SOL UD 3ML (DUONEB)(J7620) NEB PRN (14:34)
[2018-09-26] MEDS ORDERED: PROAAER10 INH (15:07)
[2018-09-26] MEDS ORDERED: PRED20TA PO (15:07)
[2018-09-26 15:15] VITALS: BP 134/73
--- NOTE | 2018-09-27 09:17 | REP ---
PA and lateral chest: Comparison is 09/14/2018. The lung jett are clear. The cardiac size is normal. The briana, mediastinum, and skeletal structures are unremarkable. Impression: Negative PA and lateral chest. There is no interval change. Electronically Signed by Ramos Heck MD 09/26/2018 02:45 P
== END 2018-09-26 15:17 | disposition home or self-care (01) ==
LOC: M ED 13:40
DX: J45.901 Unspecified asthma with (acute) exacerbation (principal); E03.9 Hypothyroidism, unspecified; F32.9 Major depressive disorder, single episode, unspecified; F41.9 Anxiety disorder, unspecified; G43.909 Migraine, unspecified, not intractable, without status migrainosus; Z87.01 Personal history of pneumonia (recurrent)
CPT/HCPCS: 71046; 94640; 96372; 99284; J2930

== ENCOUNTER → 2018-12-24 | Outpatient (REF) | payer OTHER ==
[2018-12-24 17:57] LABS: BASO # 0.1 10^3/uL (0.0-0.2); BASO % 0.7 % (0.0-1.0); EOS # 0.3 10^3/uL (0.0-0.50); EOS % 4.4 % (0.0-3.0); HEMATOCRIT 41.3 % (36.0-47.0); HEMOGLOBIN 13.8 g/dl (12.0-15.5); LYMPH # 2.3 10^3/uL (1.5-6.5); LYMPH % 30.8 % (24.0-44.0); MEAN CORPUSCULAR HEMOGLOBIN 30.8 pg (27.0-33.0); MEAN CORPUSCULAR HGB CONC 33.4 g/dl (32.0-36.5); MEAN CORPUSCULAR VOLUME 92.2 fl (80.0-96.0); MONO # 0.5 10^3/uL (0.0-0.8); MONO % 6.9 % (0.0-5.0); NEUTROPHILS # 4.3 10^3/uL (1.8-7.7); NEUTROPHILS % 56.9 % (36.0-66.0); PLATELET COUNT, AUTOMATED 363 10^3/uL (150-450); RED BLOOD COUNT 4.48 10^6/uL (4.00-5.40); WHITE BLOOD COUNT 7.5 10^3/uL (4.0-10.0)
[2018-12-24 18:04] LABS: APPEARANCE, URINE HAZY (CLEAR); BACTERIA, URINE AUTO 1+ (NEGATIVE); BILIRUBIN, URINE AUTO NEGATIVE (NEGATIVE); BLOOD, URINE BLOOD 1+ (NEGATIVE); COLOR, URINE YELLOW (YELLOW); GLUCOSE, URINE (UA) AUTO NEGATIVE (NEGATIVE); KETONE, URINE AUTO NEGATIVE (NEGATIVE); LEUKOCYTE ESTERASE, URINE AUTO 3+ (NEGATIVE); MUCUS, URINE SMALL (NEGATIVE); NITRITE, URINE AUTO NEGATIVE (NEGATIVE); PROTEIN, URINE AUTO NEGATIVE (NEGATIVE); RBC, URINE AUTO 5 /HPF (0-3); SPECIFIC GRAVITY URINE AUTO 1.011 (1.002-1.035); SQUAMOUS EPITHELIAL CELL UR AU 4 /HPF (0-6); UROBILINOGEN, URINE AUTO 0.2 mg/dL (0.0-2.0); WBC, URINE AUTO 5 /HPF (0-3)
[2018-12-24 18:07] LABS: ALBUMIN 3.7 GM/DL (3.2-5.2); ALT/SGPT 24 U/L (12-78); BILIRUBIN,TOTAL 0.8 MG/DL (0.2-1.0); BLOOD UREA NITROGEN 6 MG/DL (7-18); CARBON DIOXIDE LEVEL 28 MEQ/L (21-32); CHLORIDE LEVEL 106 MEQ/L (98-107); CHOLESTEROL LEVEL 151 MG/DL (<200); CHOLESTEROL RISK RATIO 3.355 (<5); CREATININE FOR GFR 0.56 MG/DL (0.55-1.30); GLOMERULAR FILTRATION RATE > 60.0 (>60); GLUCOSE, FASTING 85 MG/DL (70-100); HDL CHOLESTEROL 45 MG/DL (>40); LDL CHOLESTEROL 84 MG/DL (<100); NON-HDL-C 106 MG/DL; POTASSIUM SERUM 4.1 MEQ/L (3.5-5.1); SODIUM LEVEL 140 MEQ/L (136-145); TOTAL 25(OH) VITAMIN D 11.2 NG/ML (30.0-100.0); TRIGLYCERIDES LEVEL 108 MG/DL (<150)
[2018-12-24 18:19] LABS: HEMOGLOBIN A1c 4.9 %
== END ==
LOC: M LAB REF 17:06
PROVIDERS: ATTEND Nurse Practitioner Family
DX: E66.09 Other obesity due to excess calories (principal); Z13.9 Encounter for screening, unspecified

== ENCOUNTER 2019-01-25 06:03 | Emergency (ER) | payer MEDICAID, OTHER ==
[~2019-01-25] VITALS: Ht 172.7 cm; Wt 111.4 kg
[2019-01-25] MEDS ORDERED: ADV250INH INH (06:10)
[2019-01-25] MEDS ORDERED: EFFE37.5 PO (06:10)
[2019-01-25] MEDS ORDERED: CIPR-250 PO (06:10)
[2019-01-25] MEDS ORDERED: WELLTAB38 PO (06:10)
[2019-01-25] MEDS ORDERED: METOCLOPRAMIDE INJ 10MG/2ML VIAL (J2765) IV ONE (07:45)
[2019-01-25] MEDS ORDERED: dexameTHASONE 4 MG/ML 1ML VIAL (J1100) IV ONE (07:45)
[2019-01-25] MEDS ORDERED: KETOROLAC 30 MG/ML VIAL (J1885) IV ONE (07:45)
[2019-01-25] MEDS ORDERED: SUMAtriptan SUCCINATE 6 MG/0.5 ML VIAL SC ONE (07:45)
[2019-01-25] MEDS ORDERED: diphenhydrAMINE INJ 50MG/ML VIAL (J1200) IV ONE (07:45)
[2019-01-25] MEDS ORDERED: NS 1,000 ML IV ONE (07:45)
[2019-01-25 10:02] VITALS: BP 100/60
== END 2019-01-25 10:03 | disposition home or self-care (01) ==
LOC: M ED 06:03
DX: G43.909 Migraine, unspecified, not intractable, without status migrainosus (principal); E03.9 Hypothyroidism, unspecified; F32.9 Major depressive disorder, single episode, unspecified; J45.909 Unspecified asthma, uncomplicated; Z79.899 Other long term (current) drug therapy
CPT/HCPCS: 96361; 96374; 96375; 99283; J1100; J1200; J1885; J2765

== ENCOUNTER 2019-02-16 11:14 | Emergency (ER) | payer MEDICAID, OTHER ==
[~2019-02-16] VITALS: Ht 170.2 cm; Wt 111.4 kg
[~2019-02-16 11:14] MED LIST changes: +ADV250INH INH; +CIPR-250 PO; +WELLTAB38 PO
[2019-02-16] MEDS ORDERED: ARIP1TAB (11:22)
[2019-02-16] MEDS ORDERED: HYDR50TA70 (11:22)
[2019-02-16 11:50] LABS: HEMATOCRIT 41.7 % (36.0-47.0); HEMOGLOBIN 14.2 g/dl (12.0-15.5); MEAN CORPUSCULAR HEMOGLOBIN 31.2 pg (27.0-33.0); MEAN CORPUSCULAR HGB CONC 34.1 g/dl (32.0-36.5); MEAN CORPUSCULAR VOLUME 91.6 fl (80.0-96.0); PLATELET COUNT, AUTOMATED 328 10^3/uL (150-450); RED BLOOD COUNT 4.55 10^6/uL (4.00-5.40); WHITE BLOOD COUNT 7.9 10^3/uL (4.0-10.0)
[2019-02-16 12:14] LABS: ALBUMIN 3.8 GM/DL (3.2-5.2); ALT/SGPT 25 U/L (12-78); BILIRUBIN,TOTAL 0.6 MG/DL (0.2-1.0); BLOOD UREA NITROGEN 11 MG/DL (7-18); CALCIUM LEVEL 8.9 MG/DL (8.5-10.1); CARBON DIOXIDE LEVEL 26 MEQ/L (21-32); CHLORIDE LEVEL 106 MEQ/L (98-107); CREATININE FOR GFR 0.65 MG/DL (0.55-1.30); GLOMERULAR FILTRATION RATE > 60.0 (>60); GLUCOSE, FASTING 88 MG/DL (70-100); SODIUM LEVEL 140 MEQ/L (136-145); TOTAL PROTEIN 7.2 GM/DL (6.4-8.2)
[2019-02-16] MEDS ORDERED: NS 1,000 ML IV ONE (12:30)
[2019-02-16] MEDS ORDERED: ACETAMINOPHEN TAB 650MG DOSE (2X325MG) PO ONE (12:30)
[2019-02-16 13:57] LABS: APPEARANCE, URINE CLEAR (CLEAR); BACTERIA, URINE AUTO 1+ (NEGATIVE); BILIRUBIN, URINE AUTO NEGATIVE (NEGATIVE); BLOOD, URINE BLOOD 3+ (NEGATIVE); COLOR, URINE YELLOW (YELLOW); GLUCOSE, URINE (UA) AUTO NEGATIVE (NEGATIVE); KETONE, URINE AUTO NEGATIVE (NEGATIVE); LEUKOCYTE ESTERASE, URINE AUTO TRACE (NEGATIVE); MUCUS, URINE SMALL (NEGATIVE); NITRITE, URINE AUTO NEGATIVE (NEGATIVE); PROTEIN, URINE AUTO NEGATIVE (NEGATIVE); RBC, URINE AUTO 5 /HPF (0-3); SQUAMOUS EPITHELIAL CELL UR AU 7 /HPF (0-6); UROBILINOGEN, URINE AUTO 0.2 mg/dL (0.0-2.0); WBC, URINE AUTO 4 /HPF (0-3)
[2019-02-16 14:21] VITALS: BP 127/78
--- NOTE | 2019-02-16 19:23 | ECGEPIP ---
[facility] - ED Test Date: 2019-02-16 Pat Name: RUPINDER BLANTON Department: Room: - Gender: Female Sr. Director: CT : 1995 Requested By: TRUNG ABARCA PA-C. Order Number: [id number] Reading MD: Serge Dailey Measurements Intervals [place] Rate: 79 P: 43 OK: 128 QRS: 69 QRSD: 99 T: 56 QT: 387 QTc: 445 Interpretive Statements SINUS RHYTHM WITH SINUS ARRHYTHMIA POSSIBLE INCOMPLETE RIGHT BUNDLE BRANCH BLOCK NO PRIORS FOR COMPARISON Electronically Signed on 02-16-2019 19:22:55 EDT by Serge Dailey
== END 2019-02-16 14:34 | disposition home or self-care (01) ==
LOC: M ED 11:14
DX: R55 Syncope and collapse (principal); I49.9 Cardiac arrhythmia, unspecified; J45.909 Unspecified asthma, uncomplicated; F32.9 Major depressive disorder, single episode, unspecified; F90.9 Attention-deficit hyperactivity disorder, unspecified type; F17.290 Nicotine dependence, other tobacco product, uncomplicated; Z79.899 Other long term (current) drug therapy; Z79.51 Long term (current) use of inhaled steroids

== ENCOUNTER 2019-03-26 17:57 | Emergency (ER) | payer MEDICAID, OTHER ==
[~2019-03-26] VITALS: Ht 170.2 cm; Wt 114.0 kg
[~2019-03-26 17:57] MED LIST changes: +ARIP1TAB; +HYDR50TA70
[2019-03-26] MEDS ORDERED: ROBA750T4 PO (20:33)
[2019-03-26] MEDS ORDERED: IBUP80TA PO (20:33)
[2019-03-26] MEDS ORDERED: METHOCARBAMOL 750 MG TAB PO ONE (20:45)
[2019-03-26] MEDS ORDERED: CYCLOBENZAPRINE 10 MG TAB PO ONE (20:45)
[2019-03-26 20:50] VITALS: BP 111/76
--- NOTE | 2019-03-27 08:49 | REP ---
Lumbar spine series: Five views. History: Low back pain. Sciatica. Remote trauma. Findings: Lumbar vertebral body heights are preserved. Alignment is normal. No fracture or collapse is seen. Disc spaces are maintained. Pedicles and posterior elements are intact. There is no evidence of spondylolysis or spondylolisthesis. The sacroiliac joints are ankylosed consistent with an inflammatory arthropathy. 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 Otherwise negative radiographs of the lumbar spine. Electronically Signed by Porfirio Lewis MD 03/27/2019 08:41 A
--- NOTE | 2019-03-31 14:10 | ED PDOC ---
Post-Departure Follow-Up ammon hooks faxed formal report of ls spine films fo rfu mlg Megan España MD Mar 31, 2019 14:10
== END 2019-03-26 20:53 | disposition home or self-care (01) ==
LOC: M ED 17:57
DX: M54.40 Lumbago with sciatica, unspecified side (principal); Z79.899 Other long term (current) drug therapy

== ENCOUNTER → 2019-04-02 | Outpatient (REF) | payer OTHER, MEDICAID ==
[~2019-04-02] MED LIST changes: +IBUP80TA PO; +ROBA750T4 PO
== END ==
LOC: M LAB REF 17:42
PROVIDERS: ATTEND Advanced Practice Midwife
DX: Z12.4 Encounter for screening for malignant neoplasm of cervix (principal)

== ENCOUNTER 2019-04-17 20:46 | Emergency (ER) | payer MEDICAID, OTHER ==
[~2019-04-17] VITALS: Ht 170.2 cm; Wt 116.4 kg
[2019-04-17] MEDS ORDERED: ALBU8.5H (20:51)
[2019-04-17] MEDS ORDERED: methylPREDNISolone INJ 125 MG/2 ML VIAL (J2930) IV ONE (22:00)
[2019-04-17 22:11] LABS: BASO # 0.1 10^3/uL (0.0-0.2); BASO % 0.8 % (0.0-1.0); EOS # 1.2 10^3/uL (0.0-0.5); EOS % 10.1 % (0.0-3.0); HEMATOCRIT 43.8 % (36.0-47.0); HEMOGLOBIN 14.4 g/dl (12.0-15.5); LYMPH # 3.2 10^3/uL (1.5-5.0); LYMPH % 25.6 % (24.0-44.0); MEAN CORPUSCULAR HEMOGLOBIN 30.8 pg (27.0-33.0); MEAN CORPUSCULAR HGB CONC 32.9 g/dl (32.0-36.5); MEAN CORPUSCULAR VOLUME 93.6 fl (80.0-96.0); MONO # 0.8 10^3/uL (0.0-0.8); MONO % 6.8 % (0.0-5.0); NEUTROPHILS # 6.9 10^3/uL (1.5-8.5); NEUTROPHILS % 56.3 % (36.0-66.0); PLATELET COUNT, AUTOMATED 342 10^3/uL (150-450); RED BLOOD COUNT 4.68 10^6/uL (4.00-5.40); WHITE BLOOD COUNT 12.3 10^3/uL (4.0-10.0)
[2019-04-17] MEDS: IPRATROPIUM 0.5MG/ALBUTEROL 2.5MG INH SOL UD 3ML (DUONEB)(J7620) NEB PRN ×3 (22:12→22:30)
[2019-04-17 22:35] LABS: BLOOD UREA NITROGEN 6 MG/DL (7-18); CALCIUM LEVEL 8.8 MG/DL (8.5-10.1); CARBON DIOXIDE LEVEL 28 MEQ/L (21-32); CHLORIDE LEVEL 108 MEQ/L (98-107); CREATININE FOR GFR 0.69 MG/DL (0.55-1.30); GLOMERULAR FILTRATION RATE > 60.0 (>60); GLUCOSE, FASTING 81 MG/DL (70-100); POTASSIUM SERUM 4.3 MEQ/L (3.5-5.1); SODIUM LEVEL 141 MEQ/L (136-145)
[2019-04-17] MEDS ORDERED: ALBU83IN NEB (23:01)
[2019-04-17] MEDS ORDERED: PRED20TA PO (23:01)
[2019-04-17] MEDS ORDERED: PROAAER10 INH (23:01)
[2019-04-17] MEDS ORDERED: AERO1MIS2 XX (23:01)
[2019-04-17 23:14] VITALS: BP 167/99
--- NOTE | 2019-04-18 08:21 | REP ---
PA and lateral chest: Comparison is 09/26/2018. The lung jett are clear. The cardiac size is normal. The briana, mediastinum, and skeletal structures are unremarkable. Impression: Negative PA and lateral chest. There is no interval change. Electronically Signed by Ramos Heck MD 04/18/2019 08:13 A
== END 2019-04-17 23:30 | disposition home or self-care (01) ==
LOC: M ED 20:46
DX: J45.901 Unspecified asthma with (acute) exacerbation (principal); F32.9 Major depressive disorder, single episode, unspecified; F90.9 Attention-deficit hyperactivity disorder, unspecified type; Z79.899 Other long term (current) drug therapy
CPT/HCPCS: 71046; 80048; 85025; 94640; 96374; 99284; J2930